=== PATIENT | female | born 1985 | race Two or more races ===

== ENCOUNTER → 2024-11-23 | Outpatient (CLI) | payer MEDICAID, SELFPAY ==
--- NOTE | 2024-11-23 14:51 | XR_ITS ---
Examination: Knee, left , 3 views Technique: Knee AP, lateral, oblique 3 views Date and time of exam: November 23, 2024 1457 hours INDICATIONS: Left knee pain beginning one week ago. FINDINGS: Prior anterior cruciate ligament repair Mild to moderate tricompartment osteoarthritis No fracture IMPRESSION: Mild to moderate tricompartment osteoarthritis
== END | disposition home or self-care (01) ==
LOC: CDIM 14:38
DX: M17.12 Unilateral primary osteoarthritis, left knee (principal)
CPT/HCPCS: 73562

== ENCOUNTER → 2025-03-21 | Outpatient (CLI) | payer MEDICAID, SELFPAY ==
--- NOTE | 2025-03-21 12:30 | XR_ITS ---
Exam: MRI knee without contrast, left Date and time of exam: March 21, 2025, 1305 hours INDICATIONS: Knee pain years, status post surgical repair 2007 ACL reconstruction stiffness joint locking Technique: Multiple axial, coronal, and sagittal sections on the knee have been obtained. T2-Weighted sagittal, fat-suppressed images, TR 3,500, TE 62, T2 weighted coronal fat-saturated images, TR 3,500, TE 62 Proton density sagittal sections, TR 1800, TE 31. T-1 weighted coronal images, TR 524, TE 13.0 Findings: Medial meniscus anterior horn, horizontal linear tear communicating inferior articular surface Medial meniscus, body truncation inner margin. Posterior horn medial meniscus large horizontal linear tear communicating inferior articular margin. Lateral meniscus anterior horn horizontal linear tear Lateral meniscus, body is intact Posterior horn lateral meniscus horizontal linear tear Anterior cruciate ligament severely attenuated Posterior cruciate ligament mildly attenuated Knee effusion is mild. Quadriceps and patellar tendons appear intact. There is no evidence of tendinosis. Inflammatory change or fracture of Hoffa's fat pad is not seen. Medial patellar facet demonstrates moderate thinning. Lateral patellar facet cartilage demonstrates moderate thinning. Trochlear cartilage demonstrates moderate thinning. Marrow signal adequate. Medial collateral ligament appears intact. No meniscocapsular separation is seen. Illiotibial band and fibular collateral ligament are intact. Biceps femoris tendons appear intact. Medial femoral condylar articular cartilage demonstrates moderate thinning. Lateral femoral condylar articular cartilage demonstrates moderate thinning. Tibial plateau cartilage demonstrates moderate thinning. Impression: Medial and lateral meniscus tears as above Severely attenuated anterior cruciate ligament
--- NOTE | 2025-03-21 13:38 | XR_ITS ---
EXAMINATION: Right knee 4 views TECHNIQUE: AP oblique lateral axial right knee 4 views Date and time: March 21, 2025, 1405 hours INDICATIONS: Knee pain 5 years. FINDINGS: Mild to moderate tricompartment osteoarthritis Small knee effusion No fracture IMPRESSION: Mild to moderate tricompartment osteoarthritis
== END | disposition home or self-care (01) ==
DX: M17.11 Unilateral primary osteoarthritis, right knee (principal); S83.242A Other tear of medial meniscus, current injury, left knee, initial encounter; S83.282A Other tear of lateral meniscus, current injury, left knee, initial encounter; X58.XXXA Exposure to other specified factors, initial encounter
CPT/HCPCS: 73564; 73721